=== PATIENT | male | born 1965 | race African-American/Black ===

== ENCOUNTER → 2017-07-01 | Outpatient (CLI) | payer BC ==
[~2017-07-01] MED LIST: BACTRIM DS 8001 TAB PO; BACTROBAN23 TP; CELEXA40 MG PO; HYDROXYZINE50 MG PO; MEDROL 4MG TABLE4 MG PO; RELAFEN 750MG750 MG OR; TRAZODONE HCL50 MG PO
--- NOTE | 2017-07-01 13:09 | RADIOLOGY REPORT PS360 ---
CT ABD PELVIS W/O CONTRAST CLINICAL INDICATION: Lower abdominal pain, testicular pain ABD PAIN ORDERING PHYSICIAN: Alberto Larose MD PATIENT AGE: 52 years COMPARISON: None TECHNIQUE: Axial images obtained with sagittal and coronal reformats. PROCEDURE: Oral Contrast: None IV Contrast: None . FINDINGS: Lung bases are clear. Liver, gallbladder, spleen, adrenal glands, and pancreas have an unremarkable unenhanced CT appearance. No hydronephrosis apparent. There is a 4 mm stone in the lower pole of the left kidney. No ureteral calculi or ureteral dilatation. Urinary bladder has an unremarkable appearance. No intestinal obstruction or free air. No evidence of appendicitis or diverticulitis. No evidence of abdominal aortic aneurysm. No acute bony anomalies. IMPRESSION: 1. Left nephrolithiasis. 2. Otherwise negative CT abdomen pelvis without contrast
--- NOTE | 2017-07-01 15:48 | RADIOLOGY REPORT PS360 ---
US SCROTUM HISTORY: TESTICULAR PAIN ORDERING PHYSICIAN: Alberto Larose MD PATIENT AGE: 52 years COMPARISON: None FINDINGS: The right testicle measures 4 x 2 x 3 cm. There is homogeneous echogenicity. A 3 mm cyst is present in the lower pole the right testicle nonspecific. Blood flow is present on the right. No solid appearing masses are evident. No evidence of hydrocele or spermatocele. The left testicle is 4.3 x 2 x 2.9 cm no solid mass apparent. Blood flow is present. A 3 mm cyst is present in the mid aspect of the left testicle. There is a 13 mm epididymal cyst in the head of the epididymis on the left. According to the technologist this is the area of palpable abnormality and pain. No hydrocele. IMPRESSION: 1. 13 mm epididymal cyst in head of the epididymis on the left. 2. Small bilateral testicular cysts. Consider 6 month follow-up to confirm stability
== END ==
LOC: RAD 10:19
DX: R10.9 Unspecified abdominal pain (principal); N50.812 Left testicular pain